=== PATIENT | male | born 1955 | race Two or more races ===

== ENCOUNTER 2021-03-05 15:23 | Outpatient (CLI) | payer OTHER | END 2021-03-05 15:24 | disposition home or self-care (01) | LOC: LAB 15:23 | PROVIDERS: ATTEND Urology | DX: R97.20 Elevated prostate specific antigen [PSA] (principal) ==

== ENCOUNTER 2021-03-15 07:05 | Outpatient (CLI) | payer OTHER | END 2021-03-15 07:13 | disposition home or self-care (01) | LOC: SONOGRAMA 07:05 | PROVIDERS: ATTEND Urology | DX: D29.1 Benign neoplasm of prostate (principal); R97.20 Elevated prostate specific antigen [PSA] ==